=== PATIENT | male | born 1965 ===

== ENCOUNTER 2018-12-27 20:30 | Outpatient (CLI) | payer BC | END 2018-12-27 20:31 | disposition home or self-care (01) | LOC: SLEEPLAB 20:30 | PROVIDERS: ATTEND Family Medicine | DX: F51.9 Sleep disorder not due to a substance or known physiological condition, unspecified (principal); G47.10 Hypersomnia, unspecified; G47.9 Sleep disorder, unspecified; R53.83 Other fatigue; R06.83 Snoring; F41.9 Anxiety disorder, unspecified; G47.00 Insomnia, unspecified | CPT/HCPCS: 95810 ==

== ENCOUNTER 2019-01-19 20:30 | Outpatient (CLI) | payer BC | END 2019-01-19 20:31 | disposition home or self-care (01) | LOC: SLEEPLAB 20:30 | PROVIDERS: ATTEND Family Medicine | DX: G47.33 Obstructive sleep apnea (adult) (pediatric) (principal); F51.9 Sleep disorder not due to a substance or known physiological condition, unspecified; G47.10 Hypersomnia, unspecified; G47.9 Sleep disorder, unspecified; R53.83 Other fatigue; G47.00 Insomnia, unspecified; R06.83 Snoring; F41.9 Anxiety disorder, unspecified; E66.9 Obesity, unspecified; Z68.29 Body mass index [BMI] 29.0-29.9, adult | CPT/HCPCS: 95811 ==